=== PATIENT | female | born 1990 | race African-American/Black ===

== ENCOUNTER → 2024-08-09 | Day surgery (SDC) | payer MEDICARE ==
[~2024-08-09] VITALS: Ht 162.6 cm; Wt 97.5 kg
[~2024-08-09] MED LIST: BUPIVACAINE HCL/PF 0.5% (5MG/ML) 10ML ONE; FENTANYL CITRATE/PF 50MCG/ML 2ML VIAL ONE; LABETALOL 5MG/ML 4ML INJ IV PRN; LACTATED RINGERS 1,000 ML IV SCH; MEPERIDINE HCL/PF 25MG/ML CPJ IV PRN; MIDAZOLAM HCL 2 MG/2 ML VIAL ONE; ONDANSETRON HCL 4MG/2ML INJ IV PRN; SKIN ADHESIVE 0.7 GM EA TOP ONE
[2024-08-09 09:10] LABS: UCG SCREEN NEGATIVE
[2024-08-09 09:11] LABS: UCG KIT LOT# 0000946166
[2024-08-09] MEDS: HYDROMORPHONE HCL/PF 1MG/ML INJ IV PRN (12:12)
[2024-08-09 12:57] VITALS: BP 111/76; PULSE 71; RESP 14
[2024-08-09] MEDS: ACETAMINOPHEN WITH CODEINE 300/30MG TABLET PO SCH (12:57)
== END | disposition home or self-care (01) ==
LOC: OR 08:35
PROVIDERS: ATTEND Surgery
DX: K64.4 Residual hemorrhoidal skin tags (principal); K64.8 Other hemorrhoids; Z79.899 Other long term (current) drug therapy; Z98.890 Other specified postprocedural states
CPT/HCPCS: 46260; 81025; 88304; J3010; J0665; J2250; J1171